=== PATIENT | male | born 1965 | race Caucasian/White ===

== ENCOUNTER 2020-05-30 13:45 | Emergency (ER) | payer OTHER, SELFPAY ==
--- NOTE | ~2020-05-30 | XR_ITS ---
EXAMINATION: XR chest 2V DATE: 05/30/2020 14:53 INDICATION: Left-sided chest pain TECHNIQUE: PA and lateral views of the chest are obtained. COMPARISON: 10/01/2011 FINDINGS: The lungs are free of acute opacities. There is no pleural effusion or pneumothorax. The ca rdiomediastinal silhouette is normal. There is moderate thoracic spondylosis. Surgical changes are no forest in the lower cervical spine. IMPRESSION: 1. No acute cardiopulmonary abnormality. Reviewed, dictated and finalized at location B.
--- NOTE | 2020-05-30 13:47 | ECG_ITS ---
Measurements Intervals [place] Rate: 87 P: 56 HI: 183 QRS: -2 QRSD: 98 T: 16 QT: 349 QTc: 421 Interpretive Statements SINUS RHYTHM NORMAL ECG Electronically Signed On 05-30-2020 15:45:32 CDT by Waldemar Morgan D.O.
[2020-05-30 13:50] VITALS: BP 138/85; PULSE 85; RESP 17; O2SAT 98
[2020-05-30 13:57] VITALS: PULSE 85; O2SAT 98
--- NOTE | 2020-05-30 14:06 | ED.CHESTPAIN ---
HPI - Chest Pain General Chief Complaint: Chest Pain Stated Complaint: think im having a heart attack Time Seen by Provider: 05/30/20 14:04 History of Present Illness HPI narrative: Patient is a 54-year-old male who presents ER with concerns of having a heart attack. Patient reports he was cleaning up under his car and carport was backing up some rest when he began to feel very weak he then felt tightness in his chest with irregular heartbeat and irregular breathing. He became very diaphoretic and lightheaded. Symptoms lasted for at least 20 minutes. Patient feels better at this time but still has some occasional lightheadedness. No change in symptoms with turning the head. No sinus congestion throat/sore throat/cough. No previous history of coronary disease. Related Data Home Medications Medication Instructions Recorded Confirmed atorvastatin HS 05/30/20 diazepam [Valium] 20 mg PO HS 05/30/20 05/30/20 gabapentin 900 TID 05/30/20 glipizide 2.5 mg DAILY 05/30/20 lisinopril 5 DAILY 05/30/20 naproxen 750 DAILY 05/30/20 pantoprazole PO DAILY 05/30/20 sertraline mg DAILY 05/30/20 tamsulosin mg PO HS 05/30/20 venlafaxine mg PO DAILY 05/30/20 Allergies Allergy/AdvReac Type Severity Reaction Status Date / Time No Known Allergies Allergy Verified 05/30/20 13:46 Review of Systems Review of Systems: All systems reviewed & are unremarkable except as noted in HPI and below Constitutional: Constitutional: Denies chills, Denies fever(s) and Reports weakness ENT: Denies nasal congestion and Denies sore throat Cardiovascular: Cardiovascular: Reports chest pain and Denies radiating jaw, neck or arm pain Comments: Reports irregular heartbeat Respiratory: Respiratory: Denies cough, Denies dyspnea and Denies wheezing Gastrointestinal: Gastrointestinal: Denies abdominal pain, Denies nausea and Denies vomiting Neurologic: Reports dizziness, Denies focal weakness and Denies numbness Psychiatric: Psychiatric: Reports anxiety PMFSH Past Medical History Medical History (Updated 05/30/20 @ 18:18 by Jeison Steen MD) Anxiety Depression Hyperlipidemia Hypertension PTSD (post-traumatic stress disorder) Surgical History Surgical History (Updated 05/30/20 @ 14:55 by Jeison Steen MD) History of back surgery History of carpal tunnel release Social History Social History (Updated 05/30/20 @ 14:56 by Jeison Steen MD) Social History: History of tobacco use Gender identity (if verbalized by the patient): Male Exam Narrative: Exam Narrative: GENERAL: Well-appearing, obese, and in no acute distress. HEAD: Normocephalic, atraumatic. ENT: Mucous membranes moist. CHEST: Clear to auscultation. No respiratory distress. HEART: Regular rate and rhythm. Normal peripheral pulses. ABDOMEN: Soft, nontender, nondistended. EXTREMITIES: Normal range of motion. No edema. SKIN: Warm, dry, no rash. NEURO: Alert and oriented x3. Course Course Emergency Course: No chest pain here. Troponins negative x2. Feels better with fluids and is not dizzy when he moves around. Discharge home and follow-up with PCP. Vital Signs Vital signs: Vital Signs Pulse Rate 85 05/30/20 13:50 Respiratory Rate 17 05/30/20 13:50 Blood Pressure 138/85 05/30/20 13:50 Pulse Oximetry 98 05/30/20 13:50 Pulse Rate 80 05/30/20 17:55 Respiratory Rate 16 05/30/20 17:55 Blood Pressure 155/85 H 05/30/20 17:55 Pulse Oximetry 98 05/30/20 17:55 MDM - Chest Pain Lab Data Result diagrams: 05/30/20 14:02 05/30/20 14:02 Labs: Lab Results 05/30/20 05/30/20 05/30/20 Range/Units 14:02 14:02 14:02 WBC 8.0 (4.5-10.0) K/mm3 RBC 5.04 (4.6-6.20) M/mm3 Hgb 15.0 (14.0-18.0) g/dL Hct 42.4 (42.0-52.0) % MCV 84.1 (80-100) fl MCH 29.8 (26-34) pg MCHC 35.4 (32-36) g/dl RDW 12.9 (11.5-14.5) % Plt Count 158 (150-375) k/mm3 MPV 10.
[2020-05-30 14:20] LABS: Basophils Percent Auto 0.4 % (0.2-1.2); Eosinophils Absolute Auto 0.1 K/mm3 (0-0.3); Eosinophils Percent Auto 1.2 % (0-4.4); Hematocrit 42.4 % (42.0-52.0); Immature Granulocyte Absolute 0.02 K/mm3 (0.00-0.031); Immature Granulocyte Percent A 0.2 % (0-0.5); Lymphocytes Percent Auto 34.9 % (18.3-44.2); Mean Corpuscular HGB Conc 35.4 g/dl (32-36); Mean Corpuscular Hemoglobin 29.8 pg (26-34); Mean Corpuscular Volume 84.1 fl (80-100); Mean Platelet Volume 10.3 fl (7.4-10.4); Monocytes Absolute Auto 0.7 K/mm3 (0.1-0.6); Monocytes Percent Auto 8.2 % (2.6-8.5); Neutrophils Absolute Auto 4.4 K/mm3 (1.3-6.7); Neutrophils Percent Auto 55.1 % (45.5-73.1); Platelet Count Result 158 k/mm3 (150-375); Red Blood Count 5.04 M/mm3 (4.6-6.20); Red Cell Distribution Width 12.9 % (11.5-14.5)
[2020-05-30 14:28] LABS: Partial Thromboplastin Time 24.8 SECONDS (22.3-36.8); Prothrombin Time 12.6 Seconds (11.1-14.7)
[2020-05-30 14:30] LABS: Anion Gap 13.5 mmol/L (7-16); Blood Urea Nitrogen 17 mg/dL (9-20); Calcium 8.8 mg/dL (8.4-10.2); Carbon Dioxide 23 mmol/L (22-30); Chloride 101 mmol/L (98-107); Estimated CRCL calculation 91 ml/min; Estimated Glomerular Filt Rate > 60; Glucose 101 mg/dL (75-110); Potassium 3.5 mmol/L (3.4-5.0); Sodium 134 mmol/L (137-145)
[2020-05-30 14:42] LABS: Troponin I < 0.012 ng/mL (0.000-0.034)
[2020-05-30] MEDS: SODIUM CHLORIDE 0.9% IV 1,000 ML 999 ML IV CONT (14:55)
[2020-05-30 15:23] VITALS: BP 139/89; PULSE 77; RESP 16; O2SAT 99
[2020-05-30 17:18] LABS: Troponin I < 0.012 ng/mL (0.000-0.034)
[2020-05-30 17:55] VITALS: BP 155/85; PULSE 80; RESP 16; O2SAT 98
[2020-05-30 19:04] VITALS: BP 185/110; PULSE 80; RESP 16; O2SAT 98
== END 2020-05-30 19:05 | disposition home or self-care (01) ==
PROVIDERS: Emergency Provider Emergency Medicine
DX: R07.89 Other chest pain (principal); F41.9 Anxiety disorder, unspecified; F32.9 Major depressive disorder, single episode, unspecified; E78.5 Hyperlipidemia, unspecified; I10 Essential (primary) hypertension; F43.10 Post-traumatic stress disorder, unspecified
CPT/HCPCS: 36415; 71046; 80048; 84484; 85025; 85610; 85730; 93005; 96360; 99284; J7030

== ENCOUNTER 2021-02-27 15:26 | Emergency (ER) | payer OTHER, SELFPAY ==
--- NOTE | 2021-02-27 15:29 | ECG_ITS ---
Measurements Intervals [place] Rate: 86 P: 53 ME: 166 QRS: 2 QRSD: 98 T: 30 QT: 341 QTc: 409 Interpretive Statements SINUS RHYTHM NORMAL ECG Electronically Signed On 02-27-2021 15:56:33 CDT by Waldemar Morgan D.O.
[2021-02-27 15:56] VITALS: BP 136/79; PULSE 90; RESP 18; TEMP 36.6; O2SAT 99
--- NOTE | 2021-02-27 16:35 | PC.NURSE ---
Pt to intake desk stating he is going to leave and make an appointment with his PCP, states he was told his EKG was good and he wasn't going to be here all night. Pt was informed that the doctor was looking at his EKG for STEMI, and we did not have his labs or everything back at this time. Pt again stated he was just going to leave. Ambulated out of ED with steady gait.
== END 2021-02-28 03:19 | disposition left against medical advice (07) ==
PROVIDERS: Emergency Provider Emergency Medicine
DX: R00.2 Palpitations (principal)
CPT/HCPCS: 93005; 99199

== ENCOUNTER 2021-09-08 10:55 | Emergency (ER) | payer OTHER, SELFPAY | END 2021-09-08 10:56 | disposition left against medical advice (07) | LOC: EXPCOLL 10:58 | PROVIDERS: Emergency Provider Nurse Practitioner | DX: Z53.21 Procedure and treatment not carried out due to patient leaving prior to being seen by health care provider (principal) | CPT/HCPCS: 99199 ==

== ENCOUNTER 2023-05-26 09:16 | Observation (INO) | payer OTHER, SELFPAY ==
[2023-05-26] VITALS (26 sets, daily range): BP systolic 128–188; BP diastolic 67–92; PULSE 58–79; RESP 18–20; TEMP 36.6; O2SAT 94–99; BMI 36.2
--- NOTE | ~2023-05-26 | CT_ITS ---
CT of the Abdomen and Pelvis: Indication: Left flank pain Technique: 2.5 mm axial scans were obtained through the abdomen and pelvis following intravenous adm inistration of 100 cc of Omnipaque 350. Dose reduction technique was used on this scan by utilizing a utomated exposure control and iterative reconstruction technique. The dose-length product (DLP) was 1 275.67 mGy-cm. COMPARISON: 11/06/2006 Findings: Scans through the lung bases are unremarkable. The liver, spleen, pancreas, gallbladder, adrenals and right kidney are within normal limits. There i s a probable punctate stone at the left UVJ, with mild left hydroureteronephrosis, and left perinephr ic stranding. There are atherosclerotic calcifications of the aorta. No lymphadenopathy. No bowel obstruction or bowel wall thickening. Normal appendix present. Images through the pelvis were performed. Urinary bladder otherwise unremarkable. Prostate gland and seminal vesicles are unremarkable. No ascites. Impression: Punctate stone at the left UVJ, with mild left hydroureteronephrosis and left perinephric stranding. Reviewed, dictated and finalized at location . Impression: Punctate stone at the left UVJ, with mild left hydroureteronephrosis and left p erinephric stranding.
--- NOTE | ~2023-05-26 | XR_ITS ---
Supine and upright views of the abdomen Clinical history: Left ureteral stone Findings: Bowel gas pattern is nonspecific. No evidence for obstruction or free air. There is excrete d contrast in the bilateral renal collecting systems, without evidence of moderate left hydronephrosi s. Lumbosacral spinal fixation hardware is present. Impression: Moderate left hydronephrosis. Reviewed, dictated and finalized at location . Impression: Moderate left hydronephrosis.
[2023-05-26 09:50] LABS: Basophils Percent Auto 0.7 % (0.2-1.2); Eosinophils Absolute Auto 0.1 K/mm3 (0-0.3); Hematocrit 40.6 % (42.0-52.0); Immature Granulocyte Absolute 0.03 K/mm3 (0.00-0.031); Immature Granulocyte Percent A 0.5 % (0-0.5); Immature Platelet Fraction Pct 3.2 % (0.9-11.2); Lymphocytes Absolute Auto 1.64 K/mm3 (0.9-3.2); Lymphocytes Percent Auto 26.9 % (18.3-44.2); Mean Corpuscular HGB Conc 34.5 g/dl (32-36); Mean Corpuscular Hemoglobin 30.2 pg (26-34); Mean Corpuscular Volume 87.7 fl (80-100); Monocytes Absolute Auto 0.6 K/mm3 (0.1-0.6); Monocytes Percent Auto 9.7 % (2.6-8.5); Neutrophils Absolute Auto 3.7 K/mm3 (1.3-6.7); Neutrophils Percent Auto 61.2 % (45.5-73.1); Platelet Count Result 162 k/mm3 (150-375); Red Blood Count 4.63 M/mm3 (4.6-6.20); White Blood Count 6.1 K/mm3 (4.5-10.0)
[2023-05-26 10:00] LABS: Alanine Aminotransferase 28 U/L (6-50); Albumin Level 4.1 g/dL (3.5-5.1); Alkaline Phosphatase 123 U/L (38-126); Anion Gap 8 mmol/L (8-16); Aspartate Amino Transferase 24 U/L (17-59); Bilirubin,Total 1.3 mg/dL (0.2-1.3); Blood Urea Nitrogen 23 mg/dL (9-20); Calcium 8.1 mg/dL (8.4-10.2); Carbon Dioxide 24 mmol/L (22-30); Chloride 101 mmol/L (98-107); Estimated CRCL calculation 80 ml/min; Estimated Glomerular Filt Rate > 60; Glucose 185 mg/dL (65-110); Lipase 1018 U/L (23-300); Potassium 4.1 mmol/L (3.4-5.0); Sodium 133 mmol/L (137-145)
--- NOTE | 2023-05-26 10:07 | ED.MALEGU ---
HPI - Male Genitourinary General Chief complaint: Urogenital-Male <Grace Alatorre PA-C - Last Filed: 05/26/23 12:38> Stated complaint: flank pain unable to urinate <Grace Alatorre PA-C - Last Filed: 05/26/23 12:38> Time Seen by Provider: 05/26/23 09:28 <LEANNE Denney Last Filed: 05/26/23 12:38> Source: patient <Grace Alatorre PA-C - Last Filed: 05/26/23 12:38> Mode of arrival: ambulatory <LEANNE Denney Last Filed: 05/26/23 12:38> Limitations: no limitations <Graec Alatorre PA-C - Last Filed: 05/26/23 12:38> History of Present Illness HPI Narrative: This is a 57 year old male that presents to the ER for left flank pain ongoing since this since last night. Reports a constant pain in the left flank radiating into the abdomen. Reports difficulty urinating. Reports only able to get dribbles out at a time. Reports burning with urination. He took some naproxen with little relief. He does report history of kidney stones. Denies fever, vomiting, or hematuria. <Grace Alatorre PA-C - Last Filed: 05/26/23 12:38> Related Data Home medications: Home Medications Medication Instructions Recorded Confirmed sertraline 100 mg tablet 100 mg PO DAILY 05/30/20 05/26/23 tamsulosin 0.4 mg capsule 0.4 mg PO HS 05/30/20 05/26/23 alprazolam 1 mg tablet 1 mg PO BID 06/17/21 05/26/23 prazosin 2 mg capsule 2 mg PO BID 06/17/21 05/26/23 dextroamphetamine-amphetamine 5 mg 5 mg PO BID 05/26/23 05/26/23 tablet ezetimibe 10 mg tablet (Zetia) 10 mg PO HS 05/26/23 05/26/23 lisinopril 10 mg tablet 10 mg PO DAILY 05/26/23 05/26/23 naproxen 500 mg tablet 500 mg PO BID 05/26/23 05/26/23 niacin 500 mg tablet,extended 500 mg PO HS 05/26/23 05/26/23 release pravastatin 20 mg tablet 20 mg PO HS 05/26/23 05/26/23 venlafaxine 75 mg tablet,extended 75 mg PO DAILY 05/26/23 05/26/23 release 24 hr <Grace Alatorre PA-C - Last Filed: 05/26/23 12:38> Allergies/Adverse reactions: Allergies Allergy/AdvReac Type Severity Reaction Status Date / Time No Known Allergies Allergy Verified 05/26/23 16:36 <Grace Alatorre PA-C - Last Filed: 05/26/23 12:38> Review of Systems Review of Systems: CONSTITUTIONAL: Denies fever GASTROINTESTINAL: Reports abdominal pain. Denies nausea, vomiting GENITOURINARY: Reports dysuria. Denies hematuria. <Grace Alatorre PA-C - Last Filed: 05/26/23 12:38> All systems reviewed & are unremarkable except as noted in HPI and below <Grace Alatorre PA-C - Last Filed: 05/26/23 12:38> [facility] Past Medical History Medical History: Medical History Anxiety Depression Hyperlipidemia Hypertension Kidney stone PTSD (post-traumatic stress disorder) <LEANNE Denney Last Filed: 05/26/23 12:38> Surgical History Surgical History: Surgical History H/O rhinoplasty History of back surgery History of carpal tunnel release S/P tonsillectomy and adenoidectomy <Grace Alatorre PA-C - Last Filed: 05/26/23 12:38> Family History Family History: Family History Father Kidney stone Mother Alzheimer's dementia <LEANNE Denney Last Filed: 05/26/23 12:38> Social History Social History: Social History Social History: The patient lives with his daughter and he has 3 children. [facility] The patient is disabled from the . The patient stated that he occasionally drinks and sometimes drinks more than others. He occasionally has a cigarette. Smoking status: Current some day smoker Tobacco type: cigarettes Alcohol intake: former Substance use: never Lack of Transportation: No Lack of Food: Never True Current Housing: I Have Housing Con
[2023-05-26 10:11] LABS: Appearance Urine Cloudy (Clear); Bacteria Urine None Seen /hpf; Bilirubin Urine Negative (Negative); Blood Urine 3+ (Negative); Color Urine Yellow (Yellow); Glucose Urine UA 1+ mg/dL (Negative); Ketones Urine Negative (Negative); Leukocyte Esterase Ur Negative LEU/UL (Negative); Need Manual Microscopic Reviewed; Nitrate Urine Negative (Negative); Non Pathogenic Casts 0-2; Protein Urine 1+ mg/dL (Negative); Specific Grav Ur 1.031 (1.001-1.035); Squamous Epithelial Cell Urine None seen /hpf (Few); WBC Urine 0-5 /hpf; pH Urine 5.5 (5.0-9.0)
[2023-05-26 10:22] LABS: Add Urine Microscopic? YES; Spermatozoa Urine PRESENT
[2023-05-26] MEDS: MORPHINE SULFATE (*CRX) 4 MG/ML INJ IV PUSH (10:34)
[2023-05-26] MEDS: ONDANSETRON INJ 4 MG/2 ML VIAL IV PUSH (10:35)
--- NOTE | 2023-05-26 11:14 | PC.NURSE ---
Patient report given to ARTURO Goodwin. All questions answered and care of patient transferred.
[2023-05-26 11:44] LABS: Hemoglobin A1C 6.2 % (<5.7)
--- NOTE | 2023-05-26 12:43 | PM.IMHP ---
H&P: HPI History of Present Illness Date/Time: 05/26/23 12:43 Chief Complaint: Left flank pain Narrative: This is a 57-year-old male patient who has had kidney stones at least 4 other times. The patient came to the emergency room today with complaints of left flank pain that has been ongoing since last night. The patient rates his pain anywhere from 7-10. He denies any nausea or vomiting or diarrhea. The patient stated he is having difficulty urinating. He stated that most the time he is able to pass a kidney stones on his own. The patient stated that he has been dribbling urine at times. That also basilio when he urinates. The patient has been taking naproxen with very relief. He denies any fever or chills at this time or any hematuria. His white count was found to be normal. Sodium is 133. Glucose is 185. The patient stated that he is not diabetic however he did just eat prior to committing emergency room. Patient's lipase is 1018. His urine is cloudy with 1+ protein and 1+ glucose. Urine blood was 3+. Abdominal x-ray was read as moderate left hydronephrosis. Abdominal pelvis CT was read as punctate stone at the UVJ with mild left hydronephrosis and left. Nephrotic stranding. Urology has been consulted. The patient was given morphine, Zofran, and IV fluids. The patient is being admitted to observation status on the date of service of 05/26/2023. Review of Systems Review of Systems: All systems reviewed & are unremarkable except as noted in HPI and below Constitutional: Constitutional: Reports as per HPI and Reports no additional constitutional complaints Eyes: Eyes: Reports as per HPI and Reports no additional eye complaints ENT: Reports system reviewed and no additional complaints, except as documented and Reports Normal hearing present Cardiovascular: Cardiovascular: Reports no additional cardiovascular complaints Respiratory: Respiratory: Reports no additional respiratory complaints and Reports no additional respiratory complaints Gastrointestinal: Gastrointestinal: Reports as per HPI and Reports no additional gastrointestinal complaints Musculoskeletal: Musculoskeletal: Reports no additional musculoskeletal complaints Integumentary/Breasts: Skin/Breast: Reports system reviewed and no additional complaints, except as docu and Reports as per HPI Neurologic: Reports system reviewed and no additional complaints, except as documented, Reports as per HPI and Reports Normal hearing present Psychiatric: Psychiatric: Reports no additional psychiatric complaints and Reports as per HPI Endocrine: Endocrine: Reports no additional endocrine complaints Hematologic/Lymphatic: Hematologic/Lymphatic: Reports no additional hematologic/lymphatic complaints Allergic/Immunologic: Allergic/Immunologic: Reports no additional allergic/immunologic complaints [facility] Past Medical History Medical History (Updated 05/26/23 @ 15:08 by Alice Ferro NP) Anxiety Depression Hyperlipidemia Hypertension Kidney stone PTSD (post-traumatic stress disorder) Surgical History Surgical History (Updated 05/26/23 @ 14:53 by Aliec Ferro NP) H/O rhinoplasty History of back surgery History of carpal tunnel release S/P tonsillectomy and adenoidectomy Family History Family History (Updated 05/26/23 @ 14:43 by Alice Ferro NP) Father Kidney stone Mother Alzheimer's dementia Social History Social History (Updated 05/26/23 @ 14:43 by Alice Ferro NP) Social History: The patient lives with his daughter and he has 3 children. He usually goes to the [facility]. The patient is disabled from the . The patient stated that he occasionally drinks and sometimes drinks more than others. He occasionally has a cigarette. Smoking status: Never smoker Alcohol intake: current Substance use: never Gender identity (if verbalized by the patient): Male Meds Home Medications and Allergies Home Medicat
[2023-05-26] MEDS: SODIUM CHLORIDE 0.9% IV 500 ML 999 ML IV CONT (12:46)
[2023-05-26] MEDS: KETOROLAC 30 MG/ML VIAL (*BKC) IV PUSH (12:46)
[2023-05-26] MEDS: SODIUM CHLORIDE 0.9% IV 1,000 ML 125 ML IV CONT (15:10)
--- NOTE | 2023-05-26 15:16 | PC.NURSE ---
375 urine was strained not stones or sediment seen.
--- NOTE | 2023-05-26 15:29 | ADMGEN ---
This patient, Sarbjit Shah, was admitted to Medical Room 340-01. Patient/family oriented to hospital policies and general routines including ID bracelet, bed and alarms, visiting hours, pain management, procedures, bathroom and other care routines, personal items, smoking policy, room service/diet, and visiting hours. Information on how to activate the Rapid Response Team has been discussed. Patient/Family are encouraged to report perceived risks to care and to ask questions if they do not understand what they are told or what they should do.
--- NOTE | 2023-05-26 16:07 | WPDURCON ---
Assessment and Plan Assessment and plan (1) Ureterolithiasis: Code(s): N20.1 - Calculus of ureter Status: Acute Assessment and Plan: Pain controlled with Torodol. I offered a ureteroscopy to the patient versus passing the stone with pushing of fluids and straining of urine. He elects to pass his stone, he declines surgery. Strain all urine, push fluids. Manage stone pain. F/U in 1-2 weeks in the office with a CT scan prior to ensure stone has passed and hydro has resolved. No further evaluation needed. Urology Consult Note HPI Date Seen: 05/26/23 Time Seen: 13:34 Requesting Physician: Sanaz Samaniego DO Primary Care Provider: [facility] Consult Narrative Reason for consult: Left UVJ Stone Narrative: Sarbjit Shah is a 57 year old male who presented to the ER with acute onset of left flank pain that began last night and worsened. This was accompanied by left lower abdominal pain, dysuria and frequency of urination. He denies hematuria, vomiting or a fever. He has a history of kidney stones but has always passed them spontaneously, he has never had stone surgery. He is afebrile, WBC is 6.1, creatinine is 1.00, UA is negative and a CT scan today reveals a punctate stone in the left UVJ with mild left hydronephrosis and left stranding. The KUB shows no stone present. He also has an elevated Lipase and is being admitted to monitor this as well as his stone pain. His stone pain is now controlled with Torodol. Review of Systems Cardiovascular: Cardiovascular: Denies chest pain Respiratory: Respiratory: Reports no additional respiratory complaints Gastrointestinal: Gastrointestinal: Reports abdominal pain, Denies nausea and Denies vomiting Genitourinary: Genitourinary: Denies hematuria, Reports dysuria, Reports flank pain, Reports urinary frequency, Denies urinary hesitancy, Denies urinary incontinence and Denies urinary urgency [facility] Past Medical History Medical History Anxiety Depression Hyperlipidemia Hypertension Kidney stone PTSD (post-traumatic stress disorder) Surgical History Surgical History H/O rhinoplasty History of back surgery History of carpal tunnel release S/P tonsillectomy and adenoidectomy Family History Family History Father Kidney stone Mother Alzheimer's dementia Social History Social History Social History: The patient lives with his daughter and he has 3 children. He usually goes to the [facility]. The patient is disabled from the . The patient stated that he occasionally drinks and sometimes drinks more than others. He occasionally has a cigarette. Smoking status: Never smoker Alcohol intake: current Substance use: never Gender identity (if verbalized by the patient): Male Meds Home Medications and Allergies Home Medications Medication Instructions Recorded Confirmed Type gabapentin 300 mg capsule 900 TID 05/30/20 06/30/21 History sertraline 100 mg tablet mg DAILY 05/30/20 06/30/21 History tamsulosin 0.4 mg capsule mg PO HS 05/30/20 06/30/21 History venlafaxine 150 mg mg PO DAILY 05/30/20 06/30/21 History capsule,extended release 24 hr alprazolam 1 mg tablet 1 mg PO BID 06/17/21 06/30/21 History prazosin 2 mg capsule 2 mg PO BID 06/17/21 06/30/21 History Allergies Allergy/AdvReac Type Severity Reaction Status Date / Time No Known Allergies Allergy Verified 05/26/23 10:35 Vital Signs Vital Signs - 24 hr 05/26/23 09:19 05/26/23 10:09 05/26/23 10:10 Temperature 98 F Pulse Rate 79 Respiratory Rate 20 Blood Pressure 156/71 H 140/81 Pulse Oximetry 98 96 96 05/26/23 10:15 05/26/23 10:16 05/26/23 10:31 Temperature Pulse Rate Respiratory Rate Blood Pre
[2023-05-26] MEDS: TAMSULOSIN HCL 0.4 MG CAPSULE PO (20:35)
[2023-05-26] MEDS: PRAVASTATIN SODIUM 20 MG TABLET PO (20:36)
[2023-05-26] MEDS: EZETIMIBE 10 MG TABLET PO (20:36)
[2023-05-26] MEDS: ALPRAZolam (*CRX) 0.5 MG TABLET 1 MG PO (20:36)
[2023-05-26] MEDS: PRAZOSIN HCL 1 MG CAPSULE 2 MG PO (21:28)
[2023-05-26] MEDS: NIACIN SA 500 MG TABLET PO (21:28)
[2023-05-27] MEDS: SODIUM CHLORIDE 0.9% IV 1,000 ML 125 ML IV CONT ×2 (01:21→09:31)
[2023-05-27 04:54] VITALS: BP 118/68; PULSE 55; RESP 16; TEMP 36.1; O2SAT 99
[2023-05-27 08:05] LABS: Basophils Percent Auto 0.8 % (0.2-1.2); Eosinophils Absolute Auto 0.1 K/mm3 (0-0.3); Eosinophils Percent Auto 2.1 % (0-4.4); Hematocrit 38.6 % (42.0-52.0); Immature Granulocyte Absolute 0.01 K/mm3 (0.00-0.031); Immature Granulocyte Percent A 0.2 % (0-0.5); Immature Platelet Fraction Pct 3.4 % (0.9-11.2); Lymphocytes Percent Auto 32.9 % (18.3-44.2); Mean Corpuscular HGB Conc 33.7 g/dl (32-36); Mean Corpuscular Volume 89.1 fl (80-100); Mean Platelet Volume 9.9 fl (7.4-10.4); Monocytes Absolute Auto 0.4 K/mm3 (0.1-0.6); Monocytes Percent Auto 8.4 % (2.6-8.5); Neutrophils Absolute Auto 2.7 K/mm3 (1.3-6.7); Neutrophils Percent Auto 55.6 % (45.5-73.1); Platelet Count Result 152 k/mm3 (150-375); Red Blood Count 4.33 M/mm3 (4.6-6.20); Red Cell Distribution Width 13.1 % (11.5-14.5); White Blood Count 4.9 K/mm3 (4.5-10.0)
[2023-05-27 08:17] LABS: Lactic Acid Reflex 1.4 mmol/L (0.7-2.0)
[2023-05-27 08:21] LABS: Alanine Aminotransferase 24 U/L (6-50); Albumin Level 3.5 g/dL (3.5-5.1); Alkaline Phosphatase 85 U/L (38-126); Anion Gap 3 mmol/L (8-16); Aspartate Amino Transferase 22 U/L (17-59); Bilirubin,Total 1.1 mg/dL (0.2-1.3); Blood Urea Nitrogen 17 mg/dL (9-20); Calcium 7.8 mg/dL (8.4-10.2); Carbon Dioxide 26 mmol/L (22-30); Chloride 105 mmol/L (98-107); Estimated CRCL calculation 91 ml/min; Estimated Glomerular Filt Rate > 60; Glucose 148 mg/dL (65-110); Lipase 1266 U/L (23-300); Magnesium 1.9 mg/dL (1.6-2.3); Potassium 4.2 mmol/L (3.4-5.0); Sodium 134 mmol/L (137-145)
[2023-05-27] MEDS: SERTRALINE HCL 50 MG TABLET 100 MG PO (08:31)
[2023-05-27] MEDS: PRAZOSIN HCL 1 MG CAPSULE 2 MG PO (08:31)
[2023-05-27] MEDS: lisinopriL 10 MG TABLET PO (08:31)
[2023-05-27] MEDS: VENLAFAXINE HCL XR 75 MG CAP.ER.24H PO (08:35)
--- NOTE | 2023-05-27 10:50 | PCDIET ---
Nutrition consult for HbA1c 6.2%. See Nutrition Teaching Intervention. thank you for consult.
--- NOTE | 2023-05-27 13:26 | PM.DS ---
DS: Admitting Diagnosis Discharge Date 05/27/23 Admitting Diagnosis Urethra stone DS: Discharge Diagnosis Discharge Diagnosis (1) Ureterolithiasis: Code(s): N20.1 - Calculus of ureter Status: Acute (2) PTSD (post-traumatic stress disorder): Code(s): F43.10 - Post-traumatic stress disorder, unspecified Status: Acute (3) Anxiety: Code(s): F41.9 - Anxiety disorder, unspecified Status: Acute (4) Depression: Code(s): F32.9 - Major depressive disorder, single episode, unspecified Status: Acute (5) Elevated lipase: Code(s): R74.8 - Abnormal levels of other serum enzymes Status: Acute (6) Hypertension: Code(s): I10 - Essential (primary) hypertension Status: Acute DS: Summary Hospital Course Hospital Course: 49-year-old male with a past medical history of PTSD, depression, anxiety, hypertension and kidney stones present to the ED due to complaints of left flank pain. Patient had difficulty urinating associated with this pain. Patient had tried taking naproxen without any relief. Patient was found to have a normal white count on presentation. He was also found to have an elevated lipase of 1018. Patient did not have any associated pain that would lead 1 to think he had pancreatitis. Patient did go on a several day Smith of drinking consecutive nights in a row. He stated that his daughter talked to him about his drinking and he a is no longer doing that anymore. This could explain why patient's lipase level is high. His urine revealed 1+ protein and 1+ glucose and3+ blood. Abdominal x-ray revealing moderate left hydronephrosis. CT abdomen pelvis read as punctate stone at the UVJ with mild left hydronephrosis and left nephrotic stranding. Urology consulted. Patient decided to hold off on surgery. On day of discharge patient passed his stone. And was trained and stool was sent to pathology. It was advised the patient follow-up in Urology office in 1-2 weeks for repeat scan to ensure that his stone has passed and hydronephrosis has resolved. Patient is no longer in any pain, urinating well and is eager to return home. His labs and vital signs are stable and he is medically clear for discharge. Time Spent with Patient Time attestation: Total time spent providing and/or coordinating discharge services: Exam Narrative: GENERAL: Comfortable, no acute distress HENMT: moist mucous membranes EYES: EOM intact b/l NECK: no lymphadenopathy RESPIRATORY: clear to auscultation CARDIO: RRR GI: soft, nontender, bowel sounds present SKIN: no rashes EXTREMITIES: no edema, redness or tenderness DS: Data Data Completed and Pending Labs on day of discharge: Labs from last 24 hours 05/27/23 07:13 WBC 4.9 RBC 4.33 L Hgb 13.0 L Hct 38.6 L MCV 89.1 MCH 30.0 MCHC 33.7 RDW 13.1 Plt Count 152 MPV 9.9 Immature Gran % (Auto) 0.2 Neut % (Auto) 55.6 Lymph % (Auto) 32.9 [place] % (Auto) 8.4 Eos % (Auto) 2.1 Baso % (Auto) 0.8 Lymph # (Auto) 1.60 [place] # (Auto) 0.4 Eos # (Auto) 0.1 Baso # (Auto) 0.0 Abs Immat Gran (auto) 0.01 Absolute Neuts (auto) 2.7 Absolute Nucleated RBC 0.0 Nucleated RBC % 0.0 % Immature Plt Fraction 3.4 Sodium 134 L Potassium 4.2 Chloride 105 Carbon Dioxide 26 Anion Gap 3 L BUN 17 Creatinine 0.90 Estim Creat Clear Calc 91 Estimated GFR > 60 Glucose 148 H Lactic Acid 1.4 Calcium 7.8 L Magnesium 1.9 Total Bilirubin 1.1 AST 22 ALT 24 Alkaline Phosphatase 85 Total Protein 6.0 L Albumin 3.5 Lipase 1266 H Discharge Plan Discharge Attending physician on discharge: Elmira Ryan Consulting providers: Jose Chirinos; Grace Alatorre Discharging Clinician: Enid Steve Patient Disposition: Home, Self-Care Activity: as tolerated Diet: regular Discharge Instructions: Please avoid alcohol intake at this time. Stay planning hydrated by drinking pl
== END 2023-05-27 14:20 | disposition home or self-care (01) ==
LOC: ANHED 11:58 → ANH3MEDSUR 12:35 → ANH3MED 16:36 → ANH3MEDSUR 05-27 15:33
PROVIDERS: General Practice; Nurse Practitioner; Admitting Provider Student in an Organized Health Care Education/Training Program; Emergency Provider Physician Assistant; Visit Provider Family Medicine
DX: N13.2 Hydronephrosis with renal and ureteral calculous obstruction (principal); F41.9 Anxiety disorder, unspecified; F32.A Depression, unspecified; E78.5 Hyperlipidemia, unspecified; I10 Essential (primary) hypertension; R73.9 Hyperglycemia, unspecified; E87.1 Hypo-osmolality and hyponatremia; F43.10 Post-traumatic stress disorder, unspecified; R74.8 Abnormal levels of other serum enzymes; F32.9 Major depressive disorder, single episode, unspecified; Z79.1 Long term (current) use of non-steroidal anti-inflammatories (NSAID); F17.210 Nicotine dependence, cigarettes, uncomplicated; Z87.442 Personal history of urinary calculi; F10.90 Alcohol use, unspecified, uncomplicated; Z79.899 Other long term (current) drug therapy; Z84.1 Family history of disorders of kidney and ureter
CPT/HCPCS: 36415; 74018; 74177; 80053; 81001; 82365; 83036; 83605; 83690; 83735; 85025; 85055; 87086; 88300; 96361; 96374; 96375; 99285; A9270; G0378; J1885; J2270; J2405; J7030; J7040; Q9967

== ENCOUNTER 2023-08-30 18:21 | Emergency (ER) | payer OTHER, SELFPAY ==
--- NOTE | ~2023-08-30 | XR_ITS ---
EXAM: XR abdomen/kub 1V DATE: 08/30/2023 20:10 HISTORY: 3mm L stone . COMPARISON: 05/26/2023; CT abdomen pelvis 08/30/2023. FINDINGS: Clear lung bases. Normal bowel gas pattern. No organomegaly. No abnormal abdominal calcifi cation. Lumbar fusion. IMPRESSION: Known distal left ureteral stone not definitively identified in these radiographs. Reviewed, dictated and finalized at location K. TIONAL MENTAL DISABILITY TEACHER IMPRESSION: Known distal left ureteral stone not definitively identified in the se radiographs.
--- NOTE | ~2023-08-30 | CT_ITS ---
EXAMINATION: CT abdomen pelvis wo con DATE: 08/30/2023 19:33 INDICATION: L flank pain, dysuria, hx stones TECHNIQUE: Computed tomography (CT) of the abdomen and pelvis was performed without intravenous contr ast. Automated exposure control and iterative reconstruction technique were employed. The dose-length product was 741.23 mGy-cm. COMPARISON: 05/26/2023. FINDINGS: Lower thorax: Unremarkable Liver: Normal. Biliary/Gallbladder: Gallbladder is normal. No bile duct dilation. Pancreas: No mass or duct dilation. Spleen: Normal. Adrenals:No mass. Kidneys: 3 mm nonobstructing left lower pole calcification. Moderate left hydronephrosis and perineph diaz stranding. GI tract: Small hiatal hernia. No small or large bowel dilation. Normal appendix. Mesentery/Peritoneum: No ascites, mass, or free air. Retroperitoneum: No mass. Atherosclerotic abdominal aortic and/or arterial calcifications. Pelvis: 3 mm calcification in the distal left ureter just proximal to the entrance of the left UVJ. T he urinary bladder is empty. Soft Tissues: Soft tissues and body wall unremarkable. Bones: No acute osseous finding. Uncomplicated appearing lumbar fusion hardware IMPRESSION: 3 mm distal left ureteral stone causing moderate obstructive uropathy. Reviewed, dictated and finalized at location K. EL SPECIALIST
[2023-08-30 18:26] VITALS: BP 154/88; PULSE 88; RESP 18; TEMP 36.4; O2SAT 100
--- NOTE | 2023-08-30 18:51 | ED.ABDPAIN ---
HPI - Abdominal Pain General Chief Complaint: Abdominal Pain Stated Complaint: kidney stone Time Seen by Provider: 08/30/23 18:39 Source: patient and old records reviewed Mode of arrival: ambulatory Limitations: no limitations History of Present Illness HPI narrative: Patient is a 57 y/o male who presents to the ED with c/o L flank pain. Patient reports pain began today around 6 hours ago. Pain became more severe in his left flank/lower back around 2 hours ago. Pain does not radiate to his abdomen. He has not tried anything for the pain. Patient reports history of kidney stones in May of this year. He was admitted to the hospital at that time for pain control, but was able to pass the stone on his own. He did follow-up with urology at the [facility] and was told he had other stones present in his kidney. Patient also reports dysuria, difficulty urinating, nausea. Denies vomiting, diarrhea, constipation, fevers. Related Data Home Medications Medication Instructions Recorded Confirmed sertraline 100 mg tablet 100 mg PO DAILY 05/30/20 05/26/23 tamsulosin 0.4 mg capsule 0.4 mg PO HS 05/30/20 05/26/23 alprazolam 1 mg tablet 1 mg PO BID 06/17/21 05/26/23 prazosin 2 mg capsule 2 mg PO BID 06/17/21 05/26/23 dextroamphetamine-amphetamine 5 mg 5 mg PO BID 05/26/23 05/26/23 tablet ezetimibe 10 mg tablet (Zetia) 10 mg PO HS 05/26/23 05/26/23 lisinopril 10 mg tablet 10 mg PO DAILY 05/26/23 05/26/23 naproxen 500 mg tablet 500 mg PO BID 05/26/23 05/26/23 niacin 500 mg tablet,extended 500 mg PO HS 05/26/23 05/26/23 release pravastatin 20 mg tablet 20 mg PO HS 05/26/23 05/26/23 venlafaxine 75 mg tablet,extended 75 mg PO DAILY 05/26/23 05/26/23 release 24 hr Allergies Allergy/AdvReac Type Severity Reaction Status Date / Time No Known Allergies Allergy Verified 05/26/23 16:36 Review of Systems Review of Systems: CONSTITUTIONAL: Denies fever, chills, or sweats. CARDIOVASCULAR: Denies chest pain. RESPIRATORY: Denies dyspnea. GASTROINTESTINAL: See HPI. GENITOURINARY: See HPI. SKIN: Denies rash or itching. MUSCULOSKELETAL: See HPI. NEUROLOGIC: Denies headache, numbness, or weakness. All systems reviewed & are unremarkable except as noted in HPI and below PMFSH Past Medical History Medical History Anxiety Depression Hyperlipidemia Hypertension Kidney stone PTSD (post-traumatic stress disorder) Surgical History Surgical History H/O rhinoplasty History of back surgery History of carpal tunnel release S/P tonsillectomy and adenoidectomy Family History Family History Father Kidney stone Mother Alzheimer's dementia Social History Social History Social History: The patient lives with his daughter and he has 3 children. He usually goes to the [employer]. The patient is disabled from the . The patient stated that he occasionally drinks and sometimes drinks more than others. He occasionally has a cigarette. Smoking status: Current some day smoker Tobacco type: cigarettes Alcohol intake: former Substance use: never Lack of Transportation: No Lack of Food: Never True Current Housing: I Have Housing Concerned About Future Housing: No Difficulty Paying Gas/Electric Bills: No Difficulty Paying for Meds: No Currently Unemployed: No Education: High School Diploma/GED Difficulty w/ Childcare or Family Care: No Gender identity (if verbalized by the patient): Male Spiritual care concerns: No Exam Narrative: GENERAL: Uncomfortable appearing, obese with BMI of 34.2, non-toxic, in no acute distress. HEAD: Normocephalic, atraumatic. NECK: Supple. No adenopathy, no masses. RESPIRATORY: Airway patent, respirations nonlabored. Desiree
[2023-08-30 18:57] LABS: Basophils Percent Auto 0.4 % (0.2-1.2); Eosinophils Percent Auto 0.4 % (0-4.4); Hematocrit 41.2 % (42.0-52.0); Hemoglobin 14.1 g/dL (14.0-18.0); Immature Granulocyte Absolute 0.06 K/mm3 (0.00-0.031); Immature Granulocyte Percent A 0.6 % (0-0.5); Lymphocytes Absolute Auto 1.15 K/mm3 (0.9-3.2); Lymphocytes Percent Auto 11.3 % (18.3-44.2); Mean Corpuscular HGB Conc 34.2 g/dl (32-36); Mean Corpuscular Hemoglobin 29.7 pg (26-34); Mean Corpuscular Volume 86.9 fl (80-100); Mean Platelet Volume 9.4 fl (7.4-10.4); Monocytes Absolute Auto 0.7 K/mm3 (0.1-0.6); Monocytes Percent Auto 7.3 % (2.6-8.5); Neutrophils Absolute Auto 8.2 K/mm3 (1.3-6.7); Platelet Count Result 185 k/mm3 (150-375); Red Blood Count 4.74 M/mm3 (4.6-6.20); Red Cell Distribution Width 12.6 % (11.5-14.5); White Blood Count 10.2 K/mm3 (4.5-10.0)
[2023-08-30 19:06] LABS: Alanine Aminotransferase 25 U/L (6-50); Albumin Level 4.7 g/dL (3.5-5.1); Alkaline Phosphatase 85 U/L (38-126); Anion Gap 8 mmol/L (8-16); Aspartate Amino Transferase 25 U/L (17-59); Bilirubin,Total 1.7 mg/dL (0.2-1.3); Blood Urea Nitrogen 12 mg/dL (9-20); Calcium 8.9 mg/dL (8.4-10.2); Carbon Dioxide 26 mmol/L (22-30); Chloride 98 mmol/L (98-107); Estimated CRCL calculation 73 ml/min; Estimated Glomerular Filt Rate > 60; Glucose 142 mg/dL (65-110); Potassium 3.7 mmol/L (3.4-5.0); Sodium 132 mmol/L (137-145)
[2023-08-30] MEDS: SODIUM CHLORIDE 0.9% IV 1,000 ML 999 ML IV CONT (19:21)
[2023-08-30] MEDS: MORPHINE SULFATE (*CRX) 4 MG/ML INJ IV PUSH (19:21)
[2023-08-30] MEDS: ONDANSETRON INJ 4 MG/2 ML VIAL IV PUSH (19:21)
[2023-08-30 19:35] LABS: Appearance Urine Cloudy (Clear); Bacteria Urine None Seen /hpf; Bilirubin Urine Negative (Negative); Blood Urine 3+ (Negative); Color Urine Yellow (Yellow); Glucose Urine UA Negative (Negative); Ketones Urine 1+ mg/dL (Negative); Leukocyte Esterase Ur Negative LEU/UL (Negative); Nitrate Urine Negative (Negative); Non Pathogenic Casts 0-2; Protein Urine Negative (Negative); Specific Grav Ur 1.019 (1.001-1.035); Squamous Epithelial Cell Urine None seen /hpf (Few); Urobilinogen Urine 0.2 mg/dL (<2.0); WBC Urine 0-5 /hpf
[2023-08-30 19:36] LABS: Add Urine Microscopic? YES
[2023-08-30] MEDS: TAMSULOSIN HCL 0.4 MG CAPSULE PO (20:11)
[2023-08-30] MEDS: HYDROmorphone HCL INJ (*CRX) 1 MG/ML SYR IV PUSH (20:23)
[2023-08-30 20:56] VITALS: BP 159/82; PULSE 86; RESP 15; O2SAT 100
[2023-08-30 21:34] VITALS: BP 154/86; PULSE 88; RESP 16; O2SAT 100
== END 2023-08-30 21:35 | disposition home or self-care (01) ==
PROVIDERS: Student in an Organized Health Care Education/Training Program; Emergency Provider Physician Assistant
DX: N20.1 Calculus of ureter (principal); E78.5 Hyperlipidemia, unspecified; I10 Essential (primary) hypertension; F17.210 Nicotine dependence, cigarettes, uncomplicated
CPT/HCPCS: 36415; 74018; 74176; 80053; 81001; 85025; 87086; 96361; 96374; 96375; 99284; A9270; J1170; J2270; J2405; J7030

== ENCOUNTER 2023-12-22 03:30 | Observation (INO) | payer OTHER, SELFPAY ==
[2023-12-22] VITALS (20 sets, daily range): BP systolic 97–150; BP diastolic 51–80; PULSE 55–118; RESP 12–20; TEMP 36.1–36.7; O2SAT 94–100; BMI 34.5
--- NOTE | ~2023-12-22 | XR_ITS ---
EXAMINATION: XR retrograde pyelo w/stent LT DATE: 12/22/2023 14:32 INDICATION: Left ureteral stone. TECHNIQUE: 319 fluoroscopic views of the abdomen and pelvis were obtained. I was not present. Fluoros copy exposure time was 242 seconds. COMPARISON: CT abdomen and pelvis 12/22/2023 FINDINGS: The left-sided retrograde pyelogram demonstrates mild hydronephrosis. There is a stone in t he proximal left ureter. There is a left internal ureteral stent in expected position. IMPRESSION: 1. Stone in proximal left ureter with mild left hydronephrosis. 2. Left internal ureteral stent in expected position. Reviewed, dictated and finalized at location A. FORENSIC
--- NOTE | ~2023-12-22 | XR_ITS ---
Supine and upright views of the abdomen Clinical history: Left ureteral stone Findings: Bowel gas pattern is nonspecific. No evidence for obstruction or free air. No abnormal mass lesion or calcification is seen. Lumbosacral spinal fixation hardware present. Impression: Known left ureteral stone not well seen radiographically. Reviewed, dictated and finalized at [facility]. E SPECIALIST Impression: Known left ureteral stone not well seen radiographically.
--- NOTE | ~2023-12-22 | CT_ITS ---
Non-contrast CT scan of the Abdomen and Pelvis Clinical indication: Flank pain Technique: 2.5 mm axial scans were obtained through the abdomen and pelvis without intravenous or or al contrast. Dose reduction technique was used on this scan by utilizing automated exposure control a nd iterative reconstruction technique. The dose-length product (DLP) was 1325.60 mGy-cm. COMPARISON: 08/30/2023 Findings: Images through the lung bases reveal no abnormalities. There is a 7 mm proximal to mid left ureteral stone, with associated left hydronephrosis. No right re nal or right ureteral stone. No right hydronephrosis. The liver, spleen, pancreas, gallbladder, and adrenals appear normal. There is no aortic aneurysm. There is no evidence of bowel obstruction. Images through the pelvis were performed. There is no evidence of ascites or lymphadenopathy. Urinary bladder unremarkable. No pelvic mass seen. Impression: 7 mm proximal to mid left ureteral stone with associated left hydronephrosis. Reviewed, dictated and finalized at [facility]. ORM ATTENDANT Impression: 7 mm proximal to mid left ureteral stone with associated left hydronephrosis.
[2023-12-22] MEDS: ONDANSETRON INJ 4 MG/2 ML VIAL IV PUSH ×2 (03:45→04:22)
[2023-12-22] MEDS: SODIUM CHLORIDE 0.9% IV 1,000 ML 999 ML IV CONT (03:45)
[2023-12-22] MEDS: MORPHINE SULFATE (*CRX) 4 MG/ML INJ IV PUSH (03:47)
--- NOTE | 2023-12-22 03:48 | ED.GENADULT ---
HPI - General Adult General Chief complaint: Urogenital-Male <Dhruv Pizarro MD - Last Filed: 12/22/23 19:17> Stated complaint: L lower back wrapping to L testicle <Dhruv Pizarro MD - Last Filed: 12/22/23 19:17> Time Seen by Provider: 12/22/23 03:35 <Dhruv Pizarro MD - Last Filed: 12/22/23 19:17> History of Present Illness HPI narrative: patient 58-year-old gentleman who presents emergency department with chief complaint of left flank pain. Patient reports that he has prior history of kidney stones and this evening he started having pain in the left flank that radiates to his left testicle area. Patient reports that feels very similar to whenever he passed kidney stone he has passed approximately 5 of them. Patient denies fever reports that the pain is worse with deep inspiration patient reports that his has been able to pass all of the stones in the past without urological procedure <Dhruv Pizarro MD - Last Filed: 12/22/23 19:17> Related Data Home medications: Home Medications Medication Instructions Recorded Confirmed sertraline 100 mg tablet 100 mg PO DAILY 05/30/20 12/22/23 alprazolam 1 mg tablet 1 mg PO HS PRN Sleep 06/17/21 12/22/23 prazosin 2 mg capsule 2 mg PO HS 06/17/21 12/22/23 dextroamphetamine-amphetamine 5 mg 5 mg PO BID 05/26/23 12/22/23 tablet ezetimibe 10 mg tablet (Zetia) 10 mg PO HS 05/26/23 12/22/23 lisinopril 10 mg tablet 5 mg PO DAILY 05/26/23 12/22/23 naproxen 500 mg tablet 500 mg PO BID PRN Pain 05/26/23 12/22/23 pravastatin 20 mg tablet 10 mg PO HS 05/26/23 12/22/23 artificial tears solution eye drops 1 drp ophthalmic (eye) QID PRN Dry 12/22/23 12/22/23 Eye(S) famotidine 20 mg tablet 20 mg PO BID 12/22/23 12/22/23 lancets (Accu-Chek Softclix 12/22/23 12/22/23 Lancets) <Dhruv Pizarro MD - Last Filed: 12/22/23 19:17> Allergies/adverse reactions: Allergies Allergy/AdvReac Type Severity Reaction Status Date / Time No Known Allergies Allergy Verified 12/22/23 12:40 <Dhruv Pizarro MD - Last Filed: 12/22/23 19:17> Review of Systems Review of Systems: A 10 system review of systems was completed on the patient and is negative except for what is stated in the HPI. Nursing and ancillary documentation was reviewed. <Dhruv Pizarro MD - Last Filed: 12/22/23 19:17> [facility] Past Medical History Medical History: Medical History Anxiety Depression Hyperlipidemia Hypertension Kidney stone PTSD (post-traumatic stress disorder) <Dhruv Pizarro MD - Last Filed: 12/22/23 19:17> Surgical History Surgical History: Surgical History H/O rhinoplasty History of back surgery History of carpal tunnel release S/P tonsillectomy and adenoidectomy <Dhruv Pizarro MD - Last Filed: 12/22/23 19:17> Family History Family History: Family History Father Kidney stone Mother Alzheimer's dementia <Dhruv Pizarro MD - Last Filed: 12/22/23 19:17> Social History Social History: Social History Social History: The patient lives with his daughter and he has 3 children. He usually goes to the [employer] [facility]. The patient is disabled from the . The patient stated that he occasionally drinks and sometimes drinks more than others. He occasionally has a cigarette. Smoking packs per day: 1 Smoking cigarettes per day: 20.0 Years smoked: 30 Smoking pack-years: 30.00 Smoking status: Current some day smoker Additional smoking assessment comments: social smoker Alcohol intake: former Substance use: never Do You Feel Safe in your Home?: Yes Lack of Transportation: No Lack of Food: Never True
[2023-12-22 03:50] LABS: Basophils Percent Auto 0.2 % (0.2-1.2); Eosinophils Absolute Auto 0.1 K/mm3 (0-0.3); Eosinophils Percent Auto 0.7 % (0-4.4); Hematocrit 41.3 % (42.0-52.0); Immature Granulocyte Absolute 0.02 K/mm3 (0.00-0.031); Immature Granulocyte Percent A 0.2 % (0-0.5); Lymphocytes Absolute Auto 1.24 K/mm3 (0.9-3.2); Lymphocytes Percent Auto 15.4 % (18.3-44.2); Mean Corpuscular HGB Conc 33.9 g/dl (32-36); Mean Corpuscular Hemoglobin 28.5 pg (26-34); Mean Corpuscular Volume 84.1 fl (80-100); Mean Platelet Volume 9.8 fl (7.4-10.4); Monocytes Absolute Auto 0.6 K/mm3 (0.1-0.6); Monocytes Percent Auto 7.3 % (2.6-8.5); Neutrophils Absolute Auto 6.1 K/mm3 (1.3-6.7); Neutrophils Percent Auto 76.2 % (45.5-73.1); Platelet Count Result 155 k/mm3 (150-375); Red Blood Count 4.91 M/mm3 (4.6-6.20)
[2023-12-22 04:00] LABS: Alanine Aminotransferase 31 U/L (6-50); Albumin Level 4.3 g/dL (3.5-5.1); Alkaline Phosphatase 79 U/L (38-126); Anion Gap 8 mmol/L (8-16); Aspartate Amino Transferase 30 U/L (17-59); Bilirubin,Total 1.1 mg/dL (0.2-1.3); Blood Urea Nitrogen 23 mg/dL (9-20); Calcium 8.9 mg/dL (8.4-10.2); Carbon Dioxide 21 mmol/L (22-30); Chloride 105 mmol/L (98-107); Estimated CRCL calculation 72 ml/min; Estimated Glomerular Filt Rate > 60; Glucose 165 mg/dL (65-110); Potassium 4.3 mmol/L (3.4-5.0); Sodium 134 mmol/L (137-145)
[2023-12-22] MEDS: HYDROmorphone HCL INJ (*CRX) 1 MG/ML SYR IV PUSH ×2 (04:18→05:57)
[2023-12-22 05:03] LABS: Appearance Urine Cloudy (Clear); Bacteria Urine None Seen /hpf; Bilirubin Urine Negative (Negative); Blood Urine 3+ (Negative); Color Urine Yellow (Yellow); Glucose Urine UA Negative (Negative); Ketones Urine Negative (Negative); Leukocyte Esterase Ur Negative LEU/UL (Negative); Nitrate Urine Negative (Negative); Non Pathogenic Casts 0-2; Protein Urine Negative (Negative); RBC Urine 0-2 /hpf (0-2); Specific Grav Ur 1.023 (1.001-1.035); Squamous Epithelial Cell Urine None seen /hpf (Few); Uric Acid Crystals Urine Present /hpf; Urobilinogen Urine 0.2 mg/dL (<2.0); WBC Urine 0-5 /hpf
[2023-12-22 05:04] LABS: Add Urine Microscopic? YES
[2023-12-22] MEDS: PROCHLORPERAZINE EDISYLATE 10 MG/2 ML VIAL IV PUSH (05:59)
--- NOTE | 2023-12-22 07:37 | PM.IMHP ---
H&P: HPI History of Present Illness Date/Time: 12/22/23 07:37 Chief Complaint: Left flank pain Narrative: 58-year-old gentleman known to us in the remote past with an episode of transient urinary retention. He presents the emergency department with acute left flank pain radiating to his left lower quadrant associated with nausea but no vomiting. He has had no fever chills or gross hematuria. Imaging demonstrates a 7 mm obstructing left mid ureteral calculus. Patient reports having passed several small stones spontaneously over the past 6-8 months. On imaging there were no other identifiable urinary tract stones. Patient does take naproxen for back pain but states it has been 4 days since he has taken it. We discussed options including observation with medical expulsive therapy, ureteroscopy with laser lithotripsy and ESWL. He has elected for the latter. He is aware the slightly increased risk of bleeding with use of nonsteroidal anti-inflammatory drugs within the past 5 days. He is aware the all additional risk including, but not limited to, adverse cardiopulmonary events, perinephric hematoma, need for additional procedures and hematuria. Review of Systems Constitutional: Constitutional: Denies chills, Denies fatigue, Denies fever(s) and Denies headache(s) Eyes: Eyes: Denies blurry vision ENT: Denies vertigo, Denies dizziness, Denies headache(s) and Denies sore throat Cardiovascular: Cardiovascular: Denies chest pain, Denies syncope, Denies lightheadedness, Denies palpitations, Denies dyspnea and Denies dyspnea on exertion Respiratory: Respiratory: Denies hemoptysis, Denies dyspnea and Denies dyspnea on exertion Gastrointestinal: Gastrointestinal: Denies melena, Denies bloating, Denies hematochezia, Denies change in bowel habits, Denies change in stool character, Denies constipation, Denies diarrhea and Denies vomiting Genitourinary: Genitourinary: Denies hematuria, Denies dysuria, Denies testicular pain, Denies urinary frequency, Denies urinary hesitancy and Denies urinary urgency Integumentary/Breasts: Skin/Breast: Denies pruritus, Denies lesions and Denies rash Neurologic: Denies confusion, Denies vertigo, Denies dizziness, Denies syncope and Denies headache(s) Psychiatric: Psychiatric: Denies anxiety, Denies change in appetite and Denies confusion Endocrine: Endocrine: Denies fatigue and Denies palpitations PMFSH Past Medical History Medical History Anxiety Depression Hyperlipidemia Hypertension Kidney stone PTSD (post-traumatic stress disorder) Surgical History Surgical History H/O rhinoplasty History of back surgery History of carpal tunnel release S/P tonsillectomy and adenoidectomy Family History Family History Father Kidney stone Mother Alzheimer's dementia Social History Social History Social History: The patient lives with his daughter and he has 3 children. He usually goes to the [employer]. The patient is disabled from the . The patient stated that he occasionally drinks and sometimes drinks more than others. He occasionally has a cigarette. Smoking status: Current some day smoker Tobacco type: cigarettes Alcohol intake: former Substance use: never Lack of Transportation: No Lack of Food: Never True Current Housing: I Have Housing Concerned About Future Housing: No Difficulty Paying Gas/Electric Bills: No Difficulty Paying for Meds: No Currently Unemployed: No Education: High School Diploma/GED Difficulty w/ Childcare or Family Care: No Gender identity (if verbalized by the patient): Male Spiritual care concerns: No Meds Home Medications and Allergies Home Medications Medication Instructions
--- NOTE | 2023-12-22 13:10 | WPDANESEPPF ---
Anes - Initial Pre Proc Eval Procedure: Operation Date: 12/22/23 13:00 Proposed Procedures p Cystoscopy,Left Ureteroscopy,Left Retrograde Pyelogram,Left Stone Extraction,Possible Stent Placement ,Possible Holmium Laser - Jose Chirinos MD Date/Time: 12/22/23 13:10 Surgeon: Jose Chirinos MD Pre Op Diagnosis: Ureterolithiasis Patient Data Age: 58 Gender: M Height: 1.7 m Weight: 100 kg Last Vital Signs Temp 36.3 C L 12/22/23 12:00 Pulse 59 L 12/22/23 12:00 Resp 16 12/22/23 12:00 BP 121/67 12/22/23 12:00 Pulse Ox 100 12/22/23 12:00 O2 Del Method Room Air 12/22/23 12:00 Allergies Allergy/AdvReac Type Severity Reaction Status Date / Time No Known Allergies Allergy Verified 12/22/23 12:40 Home Medications Medication Instructions Recorded Confirmed Type sertraline 100 mg tablet 100 mg PO DAILY 05/30/20 12/22/23 History alprazolam 1 mg tablet 1 mg PO HS PRN Sleep 06/17/21 12/22/23 History prazosin 2 mg capsule 2 mg PO HS 06/17/21 12/22/23 History dextroamphetamine-amphetamine 5 mg 5 mg PO BID 05/26/23 12/22/23 History tablet ezetimibe 10 mg tablet (Zetia) 10 mg PO HS 05/26/23 12/22/23 History lisinopril 10 mg tablet 5 mg PO DAILY 05/26/23 12/22/23 History naproxen 500 mg tablet 500 mg PO BID PRN Pain 05/26/23 12/22/23 History pravastatin 20 mg tablet 10 mg PO HS 05/26/23 12/22/23 History tamsulosin 0.4 mg capsule (Flomax) 0.4 mg PO DAILY #7 caps 08/30/23 12/22/23 Rx artificial tears solution eye drops 1 drp ophthalmic (eye) QID PRN Dry 12/22/23 12/22/23 History Eye(S) famotidine 20 mg tablet 20 mg PO BID 12/22/23 12/22/23 History lancets (Accu-Chek Softclix 12/22/23 12/22/23 History Lancets) Laboratory Tests 12/22/23 03:44 WBC 8.0 K/mm3 (4.5-10.0) RBC 4.91 M/mm3 (4.6-6.20) Hgb 14.0 g/dL (14.0-18.0) Hct 41.3 L % (42.0-52.0) MCV 84.1 fl (80-100) MCH 28.5 pg (26-34) MCHC 33.9 g/dl (32-36) RDW 13.0 % (11.5-14.5) Plt Count 155 k/mm3 (150-375) MPV 9.8 fl (7.4-10.4) Immature Gran % (Auto) 0.2 % (0-0.5) Neut % (Auto) 76.2 H % (45.5-73.1) Lymph % (Auto) 15.4 L % (18.3-44.2) Hardy % (Auto) 7.3 % (2.6-8.5) Eos % (Auto) 0.7 % (0-4.4) Baso % (Auto) 0.2 % (0.2-1.2) Lymph # (Auto) 1.24 K/mm3 (0.9-3.2) Hardy # (Auto) 0.6 K/mm3 (0.1-0.6) Eos # (Auto) 0.1 K/mm3 (0-0.3) Baso # (Auto) 0.0 K/mm3 (0.0-0.1) Abs Immat Gran (auto) 0.02 K/mm3 (0.00-0.031) Absolute Neuts (auto) 6.1 K/mm3 (1.3-6.7) Absolute Nucleated RBC 0.0 K/mm3 (0.0-0.012) Nucleated RBC % 0.0 % (0.0-0.2) Sodium 134 L mmol/L (137-145) Potassium 4.3 mmol/L (3.4-5.0) Chloride 105 mmol/L (98-107) Carbon Dioxide 21 L mmol/L (22-30) Anion Gap 8 mmol/L (8-16) BUN 23 H D mg/dL (9-20) Creatinine 1.10 mg/dL (0.7-1.3) Estim Creat Clear Calc 72 ml/min Estimated GFR > 60 (59 - ) Glucose 165 H mg/dL (65-110) Calcium 8.9 mg/dL (8.4-10.2) Total Bilirubin 1.1 mg/dL (0.2-1.3) AST 30 U/L (17-59) ALT 31 U/L (6-50) Alkaline Phosphatase 79 U/L (38-126) Total Protein 7.0 g/dL (6.3-8.2) Albumin 4.3 g/dL (3.5-5.1) Urine Color Yellow (Yellow) Urine Appearance Cloudy H (Clear) Urine pH 5.0 (5.0-9.0) Ur Specific [place] 1.023 (1.001-1.035) Urine Protein Negative mg/dL (Negative) Urine Glucose (UA) Negative mg/dL (Negative) Urine Ketones Negative mg/dL (Negative) Ur Blood (Man) 3+ H (Negative) Urine Nitrate Negative (Negative) Urine Bilirubin Negative (Negative) Urine Urobilinogen 0.2 mg/dL (<2.0) Leukocyte Esterase Rfl Negative STEPHANIE/UL (Negative) Urine RBC 0-2 /hpf (0-2) Urine WBC 0-5 /hpf Ur Squamous Epith Cells None seen /hpf (Few) Uric Acid Crystals Present H /hpf (None) Urine Bacteria None see
[2023-12-22] MEDS: LIDOCAINE HCL 2% GEL UROJET 10 ML PKG MUCOUS MEM (13:34)
--- NOTE | 2023-12-22 14:27 | W.PM.PROC2 ---
Procedure Note - Detailed Date of Procedure 12/22/23 Pre-op Diagnosis Left ureteral stone Post-op Diagnosis Same Procedure Performed cystoscopy, left retrograde pyelography, left ureteroscopy with laser lithotripsy and left ureteral stent placement Surgeon Jose Chirinos MD Anesthesia General Description of Procedure patient has brought the operative suite was prepped and draped in routine sterile fashion while in dorsal lithotomy position after the uneventful induction of a general LMA anesthetic. Cystoscopy was undertaken with a 19 F rigid cystoscope. There was no urethral stricture. He has significant lateral lobe hyperplasia with a 3 cm prostatic urethra. There was a small median lobe. The bladder shows slight trabeculation. There was no intravesical foreign body or neoplasm. A 0.035 in glidewire was advanced to his left renal pelvis. Distal ureter was dilated with an 8 F 10 F ureteral dilator. Distal ureteroscopy was undertaken with a short tapered semi-rigid ureteral scope. There were no distal ureteral stones. I attempted placement of ureteral access sheath but he has a very tight ureter. I was able to place a 7.5 F flexible ureteral scope into his more proximal ureter. The stone was washed back into the midpole calyx. With some inspection and retrograde pyelography was able to identify it and dusted into multiple tiny little pieces with a 270 micron Chris laser fiber. Pieces were too small to extract with a basket. A 4.8 F variable length stent was positioned with the proximal coil in the renal pelvis and distal coil in the bladder. Patient tolerated the procedure well was taken recovery room good condition. Scopes and wires were removed. Drains Yes Packing No Pathology None sent Complications No immediate complications Condition Stable Disposition PACU
[2023-12-22] MEDS: LACTATED RINGERS 1,000 ML 30 ML IV CONT (14:35)
[2023-12-22] MEDS: KETOROLAC 30 MG/ML VIAL (*BKC) IV PUSH (15:16)
--- NOTE | 2023-12-23 14:03 | PM.DS ---
DS: Admitting Diagnosis Discharge Date 12/22/23 Admitting Diagnosis Left ureteral stone DS: Discharge Diagnosis Discharge Diagnosis (1) Left ureteral stone: Code(s): N20.1 - Calculus of ureter Status: Acute DS: Summary Hospital Course Hospital Course: Patient admitted through the ED with a painful obstructing 8 mm left proximal ureteral stone. The stone was radiolucent so we decided to treat with ureteroscopy, laser lithotripsy and stent placement. That was done the day of his in [place]. Later that afternoon he was comfortable and tolerating a diet. Time Spent with Patient Time attestation: Total time spent providing and/or coordinating discharge services: Discharge Plan Discharge Attending physician on discharge: Jose Chirinos Consulting providers: Carlos Keith; Alberto Anderson; Sabas Holguin V. Discharging Clinician: Jose Chirinos Anticipated Discharge Date/Time: 12/22/23 19:00 Patient Disposition: Home, Self-Care Activity: other - see discharge instructions Diet: other - see discharge instructions Discharge Instructions: 1) Activity: no driving or important decisions x24 hours. 2) Diet: resume your normal, pre-admission diet. 3) Follow-up: 7-14 days for stent removal / call for appointment ([phone]). Patient Instructions: Antibiotic Form Stand Alone Forms: General Discharge Information Follow-up/Referrals: Jose Chirinos MD [Physician] - Discharge Medications: New cephalexin 500 mg capsule 500 mg PO Q8H Qty: 9 0RF hydrocodone-acetaminophen 5-325 mg tablet 1 - 2 tablet PO Q6H PRN (Reason: pain) Qty: 20 0RF Continued alprazolam 1 mg tablet 1 mg PO HS PRN (Reason: Sleep) Rx Instructions: As needed during the day and takes it at night for sleep prazosin 2 mg capsule 2 mg PO HS lisinopril 10 mg Tablet 5 mg PO DAILY pravastatin 20 mg Tablet 10 mg PO HS dextroamphetamine-amphetamine 5 mg Tablet 5 mg PO BID Rx Instructions: administer doses at least 4-6 hours apart 0900 1200 naproxen 500 mg Tablet 500 mg PO BID PRN (Reason: Pain) ezetimibe [Zetia] 10 mg Tablet 10 mg PO HS sertraline 100 mg tablet 100 mg PO DAILY tamsulosin [Flomax] 0.4 mg capsule 0.4 mg PO DAILY Qty: 7 0RF artificial tears solution Drops 1 drp OPHTHALMIC (EYE) QID PRN (Reason: Dry Eye(S)) (DME) lancets [Accu-Chek Softclix Lancets] Misc MISCELLANEOUS famotidine 20 mg tablet 20 mg PO BID Date of admission: 12/22/23 07:34 Primary Care Provider: [facility] Admitting Provider: Jose Chirinos Attending physician on admission: Jose Chirinos Condition: Stable
== END 2023-12-22 17:50 | disposition home or self-care (01) ==
LOC: ANHED 07:38 → ANH3MEDSUR 08:23
PROVIDERS: Emergency Medicine; Admitting Provider Urology; Emergency Provider Preventive Medicine Aerospace Medicine; Visit Provider Urology
PROC: (CPT 52352; principal; 2023-12-22 13:00)
DX: N13.2 Hydronephrosis with renal and ureteral calculous obstruction (principal); F41.9 Anxiety disorder, unspecified; F32.A Depression, unspecified; E78.5 Hyperlipidemia, unspecified; I10 Essential (primary) hypertension; F43.10 Post-traumatic stress disorder, unspecified; F17.210 Nicotine dependence, cigarettes, uncomplicated; Z79.1 Long term (current) use of non-steroidal anti-inflammatories (NSAID); Z79.891 Long term (current) use of opiate analgesic; Z79.899 Other long term (current) drug therapy; Z84.1 Family history of disorders of kidney and ureter
CPT/HCPCS: 52356; 36415; 74018; 74176; 74420; 80053; 81001; 85025; 96361; 96365; 96375; 96376; 99285; A9270; C1758; C1769; C1894; C2617; G0378; J0696; J0780; J1100; J1170; J1596; J1885; J2270; J2371; J2405; J2704; J3010; J7030; J7120; Q9966

== ENCOUNTER 2024-06-28 10:37 | Outpatient (CLI) | payer OTHER, SELFPAY ==
--- NOTE | ~2024-06-28 | XR_ITS ---
EXAMINATION: XR abdomen/kub 1V DATE: 06/28/2024 10:56 INDICATION: Kidney stone. TECHNIQUE: A supine view of the abdomen on 2 radiographs was obtained. COMPARISON: Abdomen radiographs 12/22/2023, CT abdomen and pelvis 12/22/2023 FINDINGS: There is no visible urolithiasis. There are no dilated loops of bowel. There are changes of anterior and posterior fusion procedures in lumbosacral spine. IMPRESSION: 1. No urolithiasis. Reviewed, dictated and finalized at location A. IMPRESSION: 1. No urolithiasis.
== END 2024-06-28 10:38 | disposition home or self-care (01) ==
PROVIDERS: Visit Provider Physician Assistant
DX: N20.0 Calculus of kidney (principal)
CPT/HCPCS: 74018

== ENCOUNTER 2024-07-13 08:10 | Emergency (ER) | payer OTHER, SELFPAY ==
[2024-07-13 08:11] VITALS: BP 122/61; PULSE 66; RESP 14; TEMP 36.6; O2SAT 100
--- NOTE | 2024-07-13 10:22 | PC.NURSE ---
This RN attempted to get re vitals on pt and update, pt declined, pt is frustrated about wait time and states he no longer wants to be seen in the ER. Pt out w/ personal cane in NAD, daughter w/ pt at time of departure.
== END 2024-07-13 10:22 | disposition left against medical advice (07) ==
LOC: ANHED 10:14
DX: Z53.21 Procedure and treatment not carried out due to patient leaving prior to being seen by health care provider (principal)
CPT/HCPCS: 99199

== ENCOUNTER 2025-10-18 13:55 | Emergency (ER) | payer OTHER, SELFPAY ==
[2025-10-18 13:58] VITALS: BP 155/75; PULSE 70; RESP 16; TEMP 36.3; O2SAT 96
--- NOTE | 2025-10-18 15:40 | PC.NURSE ---
lwbs no longer wanting to wait
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
--- OUTSIDE RECORDS SUMMARY | 2025-10-18 15:57 | XMS_ITS | Clinical Summary ---
Author Organization [facility] Address [address] [place] [address] Care Team Providers Care Conservator Artifacts Name Role Phone Unavailable Primary Care Provider Unavailabl e Social History Tobacco Use Types Packs/Day Years Used Date Smoking Tobacco: Never Assessed Sex and Gender Information Value Date Recorded Sex Assigned at Not on file Legal Sex Male 6:41 PM CDT Gender Identity Not on file Sexual Orientation Not on file Plan of Treatment Health Maintenance Due Date Last Done Comments Colorectal Cancer Screening Colonoscopy (10 Years) 1964 Annual Physical 1967 Hepatitis C 1982 DTaP, Tdap and Td Vaccines ( 1 - Tdap) 1983 Pneumococcal Vaccine: 50+ Ye ars (1 of 1 - PCV) 2014 Zoster Vaccines (1 of 2) 2014 COVID-19 Vaccine (1 - 2024-2 6 season) 2025 Influenza Adult (#1) 2025 RSV Immunization or 60+ Years (1 - 1-dose 75+ series) 2039 Hepatitis A Vaccines Aged Out No long er eligible based on patient's age to complete this topic Meningococcal B Vaccine Aged Out No l onger eligible based on patient's age to complete this topic Meningococcal Vaccine Aged Out No valentina mera eligible based on patient's age to complete this topic RSV Immunizations Under 20 Months Aged Out No longer eligible based on patient's age to complete this topic
--- OUTSIDE RECORDS SUMMARY | 2025-10-18 15:57 | XMS_ITS | Clinical Summary ---
Author Organization [facility] Address [address] [facility] [address] [address] Care Team Providers Care Asw Specialist Name Role Phone Unavailable Primary Care Provider Unavailabl e Social History Tobacco Use Types Packs/Day Years Used Date Smoking Tobacco: Never Assessed Sex and Gender Information Value Date Recorded Sex Assigned at Not on file Legal Sex Male 8:36 AM PST Gender Identity Not on file Sexual Orientation Not on file Plan of Treatment Not on file
--- OUTSIDE RECORDS SUMMARY | 2025-10-18 15:57 | XMS_ITS | Encounter Summary ---
Author Organization [facility] Address [address] [place] [address] Care Team Providers Care Direct Marketing Analyst Name Role Phone Unavailable Primary Care Provider Unavailabl e Prior Encounters Date Type Department Care Team Description 11/12/2019 Converted CPS Chart Documents [facility] [address] [place] [address] <No scans attached> 11/12/2019 Converted 13x Documents [facility] [address] [place] [address] <No scans attached> Plan of Treatment Not on file Procedures Procedure Name Priority Date/Time Associated Diagnosis Comments 4 MOD AMALGAM 3 SURFACE Routine 01/17/20 18 1:00 AM MDT 32 MATTHEW AMALGAM 2 SURFACE Routine 01/17/20 18 1:00 AM MDT 13 DO AMALGAM 2 SURFACE Routine 01/17/20 18 1:00 AM MDT 14 ENDODONTIC THERAPY, MOLAR TOOTH (EXCLUDING FINAL LUTHERAN) Routine 01/16/2018 1:00 AM MDT 14 LIMITED ORAL EVALUATION - PROBLEM FOCUSED Routine 01/16/2018 1:00 AM MDT 13 LIMITED ORAL EVALUATION - PROBLEM FOCUSED Routine 01/16/2018 1:00 AM MDT PANORAMIC RADIOGRAPHIC IMAGE Routine 01/16/2018 1:00 AM MDT ADDITIONAL X-RAY Routine 01/16/2018 1:00 AM MDT SINGLE X-RAY Routine 01/16/2018 1:00 AM MDT Visit Diagnoses Not on file
--- OUTSIDE RECORDS SUMMARY | 2025-10-18 15:57 | XMS_ITS | Encounter Summary ---
Author Organization [facility] Healthcare Address [address] [place] [address] Care Team Providers Care Backup Operator Name Role Phone Stephy Barker ENTERTAINER OR VARIETY ARTIST Primary Care Provider + Encounter Details Date Type Department Care Team (Late st Contact Info) Description 09/10/2025 Results Follow-Up [facility] Convenient Care at [address] [address] Sofi Mills NP [address] [place] [address] [address] [place] [address] XR Shoulder Right 2 or More Views Social History Tobacco Use Types Packs/Day Years Used Date Smoking Tobacco: Former Cigarettes 0.1 15 Smokeless Tobacco: Never Comments:only smoke when goi ng out/ social smoker Alcohol Use Standard Drinks/Week [...] on file Legal Sex Male 12:54 AM TANK FURNACE OPERATOR Gender Identity Not on file Sexual Orientation Not on file Occupation Industry Job Start Date Job End Date Disability Not on file Not on file Not on file documented as of this encounter Plan of Treatment Not on file documented as of this encounter Visit Diagnoses Not on filedocumented in this encounter Care Teams Backup Operator Relationship Specialty Start Date End Date Stephy Barker NP [address] [place] [address] PCP - General Family Practice 05/31/22 documented as of this encounter
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
== END 2025-10-18 16:25 | disposition left against medical advice (07) ==
LOC: ANHED 15:54
DX: R10.A1 Flank pain, right side (principal)
CPT/HCPCS: 99199

== ENCOUNTER 2025-10-21 05:56 | Emergency (ER) | payer OTHER, SELFPAY ==
--- NOTE | ~2025-10-21 | CT_ITS ---
CT ABDOMEN AND PELVIS WITHOUT CONTRAST Clinical History: left flank pain, history of stones Comparison: 12/22/2023 Technique: Unenhanced axial images lung bases to symphysis pubis Coronal, sagittal reformats CT images acquired with automatic exposure control for dose reduction DLP: 415 mGy-cm Findings: Without intravenous contrast, sensitivity for detecting visceral parenchymal abnormalities decreased. Lung bases: Clear. Visualized heart and pericardium: Unremarkable. Liver: Unremarkable. Gallbladder: Unremarkable. Spleen: Unremarkable. Pancreas: Unremarkable. Adrenal glands: Unremarkable. Kidneys: Right kidney- No hydronephrosis. Tiny stone. Left kidney- No hydronephrosis. Tiny stone. Distal esophagus/stomach: Small hiatal hernia. Small bowel loops: Normal caliber and wall thickness. Colon: Normal caliber and wall thickness. Normal RLQ appendix. Nodes: No enlarged nodes. Peritoneum: No ascites. No free intraperitoneal air. Urinary bladder: Unremarkable. Prostate: Unremarkable. Bones: No acute bony abnormality. Soft tissues: Unremarkable. Unopacified abdominal aorta: No aneurysmal dilatation. Atherosclerotic disease. IMPRESSION: 1. Tiny bilateral renal stones, no hydronephrosis. 2. No other acute abnormality. Reviewed, dictated and finalized at location R. CTION NURSE
--- OUTSIDE RECORDS SUMMARY | 2025-10-21 05:58 | XMS_ITS | Clinical Summary ---
Author Organization [facility] [address] [address] [address] Care Team Providers Care Comber Operator Name Role Phone Unavailable Primary Care Provider [...]
--- OUTSIDE RECORDS SUMMARY | 2025-10-21 05:58 | XMS_ITS | Encounter Summary ---
Author Organization [facility] Healthcare Address [address] [place] [address] Care Team Providers Care Power Line Installer Name Role Phone Stephy Barker VOLUNTEER PATIENT REPRESENTATIVE Primary Care Provider + Encounter Details Date Type Department Care Team (Late st Contact Info) Description 09/10/2025 Results Follow-Up [facility] Group Convenient Care at [address] [address] Sofi Mills NP [address] [place] [address] [address] [place] [address] XR Shoulder Right 2 or [...] on file Legal Sex Male 12:54 AM MEDICATION MANAGER Gender Identity Not on file Sexual Orientation Not on file Occupation Industry Job Start Date Job End Date Disability Not on file Not on file Not on file documented as of this encounter Plan of Treatment Not on file documented as of this encounter Visit Diagnoses Not on filedocumented in this encounter Care Teams Power Line Installer Relationship Specialty Start Date End Date Stephy Barker NP [address] [place] [address] PCP - General Family Practice 05/31/22 documented as of this encounter
--- OUTSIDE RECORDS SUMMARY | 2025-10-21 05:58 | XMS_ITS | Encounter Summary ---
Author Organization [facility] Health Address [address] [place] [address] Care Team Providers Care Radio Communications Superintendent Name Role Phone Unavailable Primary Care Provider Unavailabl e Prior Encounters Date Type Department Care Team Description 11/12/2019 Converted CPS Chart Documents [facility] [address] [place] [address] <No scans attached> 11/12/2019 Converted 13x Documents [facility] [address] [place] [phone] <No scans attached> Plan of Treatment Not on file Procedures Procedure Name Priority Date/Time Associated Diagnosis Comments 4 MOD AMALGAM 3 SURFACE Routine 01/17/20 18 1:00 AM MDT 32 MATTHEW AMALGAM 2 SURFACE Routine 01/17/20 18 1:00 AM MDT 13 DO AMALGAM 2 SURFACE Routine 01/17/20 18 1:00 AM MDT 14 ENDODONTIC THERAPY, MOLAR TOOTH (EXCLUDING FINAL PENTECOSTALISM) Routine 01/16/2018 1:00 AM MDT 14 LIMITED ORAL EVALUATION - PROBLEM FOCUSED Routine 01/16/2018 1:00 AM MDT 13 LIMITED ORAL EVALUATION - PROBLEM FOCUSED Routine 01/16/2018 1:00 AM MDT PANORAMIC RADIOGRAPHIC IMAGE Routine 01/16/2018 1:00 AM MDT ADDITIONAL X-RAY Routine 01/16/2018 1:00 AM MDT SINGLE X-RAY Routine 01/16/2018 1:00 AM MDT Visit Diagnoses Not on file
--- OUTSIDE RECORDS SUMMARY | 2025-10-21 05:58 | XMS_ITS | Clinical Summary ---
Author Organization [facility] Address [address] [place] [address] Care Team Providers Care Professor Of Counseling Name Role Phone Unavailable Primary Care Provider [...]
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
[2025-10-21 06:00] VITALS: RESP 18
[2025-10-21 06:05] VITALS: BP 139/70; PULSE 72; RESP 18; TEMP 37.2; O2SAT 99
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
[2025-10-21 06:39] LABS: Add Urine Microscopic? NO; Appearance Urine Clear (Clear); Glucose Urine UA Negative (Negative); Hematocrit 41.7 % (42.0-52.0); Hemoglobin 14.3 g/dL (14.0-18.0); Immature Granulocyte Percent A 0.3 % (0-0.5); Immature Platelet Fraction Pct 2.9 % (0.9-11.2); Leukocyte Esterase Ur Negative LEU/UL (Negative); Lymphocytes Absolute Auto 1.45 K/mm3 (0.9-3.2); Mean Corpuscular HGB Conc 34.3 g/dl (32-36); Mean Corpuscular Hemoglobin 29.6 pg (26-34); Mean Corpuscular Volume 86.3 fl (80-100); Nitrate Urine Negative (Negative); Nucleated Red Blood Cells Absolute Auto 0.000 K/mm3 (0.0-0.012); Nucleated Red Blood Cells Perc 0.0 % (0.0-0.2); Platelet Count Result 145 k/mm3 (150-375); Red Blood Count 4.83 M/mm3 (4.6-6.20); Specific Grav Ur 1.021 (1.001-1.035); White Blood Count 5.8 K/mm3 (4.5-10.0)
[2025-10-21] MEDS: HYDROmorphone HCL INJ (*CRX) 1 MG/ML SYR IV PUSH (06:40)
[2025-10-21] MEDS: ONDANSETRON INJ 4 MG/2 ML VIAL IV PUSH (06:40)
[2025-10-21] MEDS: LACTATED RINGERS 1,000 ML 999 ML IV CONT (06:41)
[2025-10-21 06:59] LABS: Anion Gap 2 mmol/L (4-12); Blood Urea Nitrogen 25 mg/dL (9-20); Calcium 8.4 mg/dL (8.4-10.2); Carbon Dioxide 25 mmol/L (22-30); Chloride 107 mmol/L (98-107); Estimated CRCL calculation 79 ml/min; Estimated Glomerular Filt Rate > 60; Glucose 130 mg/dL (65-110); Potassium 4.5 mmol/L (3.4-5.0); Sodium 134 mmol/L (137-145)
[2025-10-21 07:12] VITALS: BP 121/69; PULSE 60; RESP 20; O2SAT 98
[2025-10-21] MEDS: HYDROmorphone HCL INJ (*CRX) 1 MG/ML SYR 0.5 MG IV PUSH (08:22)
[2025-10-21 08:32] VITALS: BP 141/84; PULSE 60; RESP 18; O2SAT 99
== END 2025-10-21 08:52 | disposition home or self-care (01) ==
PROVIDERS: Emergency Provider Student in an Organized Health Care Education/Training Program
DX: R10.A1 Flank pain, right side (principal); I10 Essential (primary) hypertension; E78.5 Hyperlipidemia, unspecified; F41.9 Anxiety disorder, unspecified; F32.A Depression, unspecified; F43.10 Post-traumatic stress disorder, unspecified; F17.210 Nicotine dependence, cigarettes, uncomplicated; Z87.442 Personal history of urinary calculi; N20.0 Calculus of kidney
CPT/HCPCS: 36415; 74176; 80048; 81003; 85025; 85055; 96361; 96374; 96375; 99284; J1171; J2405; J7120